=== PATIENT | male | born 1965 | race Caucasian/White ===

== ENCOUNTER 2017-01-21 19:19 | Emergency (ER) | payer OTHER ==
--- NOTE | 2017-01-21 20:23 | ER PHYSICIAN DOCUMENTATION ---
Physician Documentation [facility] Name:Juaquin Mak Age:51 yrs Sex:Male :1965 Arrival Date:01/21/2017 Time:19:19 Bed4 Private MD:Physician, No ED Jairo Joseph Disposition: 01/21/17 20:01 Discharged to [place]. Impression: Hypertension. - Condition is Good. - Medical Reconciliation form form. - Follow up: Private Physician; When: Tomorrow; Reason: Recheck today's complaints, Continuance of care. - Problem is new. - Symptoms have improved. - Notes: Drink plenty of water each day. Rest. Dr. Rodriguez at [facility] will determine if another medication needs to be started tomorrow in addition to your Lisinopril. HPI: 01/21 19:30 This 51 yrs old Male presents to ER via Private Vehicle with complaints of cd High Blood Pressure. 19:30 The patient has elevated blood pressure and discovered this at [facility] where he has been for the past 8 days for treatment of Alcoholism. He has been doing very well in the program. He has had HTN since his arrival there 8 days ago.. Onset: The symptom(s)/episode began/occurred 8 day(s) ago. Modifying factors: The symptoms are alleviated by prescription meds, clonidine, The patient was given Clonidine 0.1 mg PO just prior to coming to the [facility] at 1900 PM. His BP is already responding to that medication.. Associated signs and symptoms: Pertinent negatives: chest pain, dizziness, dyspnea, headache, lightheadedness, nausea, visual changes, vomiting, weakness. 19:30 Severity of symptoms: At its worst the blood pressure was severe, 187 mm Hg. The cd patient has not experienced similar symptoms in the past. Historical: - Allergies: No known drug Allergies; - Home Meds: 1. Lisinopril Oral - PMHx: Hypertension; - PSHx: HERNIA REPAIR; - Ebola Screening: : Patient negative for fever greater than or equal to 101.5 degrees Fahrenheit, and additional compatible Ebola Virus Disease symptoms. Patient denies exposure to infectious person. Patient denies travel to an Ebola-affected area in the 21 days before illness onset. No symptoms or risks identified at this time. . - Immunization history: Flu Vaccine < 1 year. - Social history: Smoking status: Patient states former smoker of tobacco. Patient/guardian denies using alcohol, street drugs, IV drugs, marijuana. ROS: 19:35 Constitutional: Negative for chills, fever, poor PO intake. cd 19:35 Eyes: Negative for blurry vision, visual disturbance, vision loss. 19:35 Cardiovascular: Negative for chest pain, edema, palpitations. 19:35 Respiratory: Negative for dyspnea on exertion, orthopnea, shortness of breath, wheezing. 19:35 Abdomen/GI: Negative for abdominal pain, nausea, vomiting. 19:35 Neuro: Negative for altered mental status, dizziness, headache, loss of consciousness, seizure activity, speech changes, visual changes. 19:35 All other systems are negative. Exam: 19:45 Head/Face: Normocephalic, atraumatic. cd Eyes: Pupils equal round and reactive to light, extra-ocular motions intact. Lids and lashes normal. Conjunctiva and sclera are non-icteric and not injected. Cornea within normal limits. Periorbital areas with no swelling, redness, or edema. ENT: Nares patent. No nasal discharge, no septal abnormalities noted. Tympanic membranes are normal and external auditory canals are clear. Oropharynx with no redness, swelling, or masses, exudates, or evidence of obstruction, uvula midline. Mucous membranes moist. 19:45 Neck: Trachea midline, no thyromegaly or masses palpated, and no cervical cd lymphadenopathy. Supple, full range of motion without nuchal rigidity, or vertebral point tenderness. No Meningismus. 19:45 Constitutional: The patient appears alert, awake, non-diaphoretic, non-toxic, well developed, well nourished. 19:45 Cardiovascular: Rate: normal, Rhythm: regular, Pulses: no pulse deficits are appreciated, Heart sounds: normal, normal S1and S2. 19:45 Respiratory: the patient does not display signs of respiratory distress, Respirations: normal, no acute changes, Breath sounds: are normal, clear throughout. 19:45 Abdomen/GI: Inspection: abdomen appears normal, Palpation: abdomen is soft and non-tender. 19:45 Back: CVA tenderness, is absent. 19:45 Musculoskeletal/extremity: Exam is negative for acute changes. 19:45 Neuro: Orientation: is normal, to person, place & time. Mentation: is normal, Memory: is normal, Cranial nerves: CN II- XII are normal as tested, Motor: is normal, Sensation: is normal, Gait: is steady. Vital Signs: 19:20 BP 187 / 100 (auto/); sc1 19:24 Pulse Ox 93% ; sc1 19:24 Pulse 69; Resp 16; sc1 19:53 BP 152 / 98 (auto/); mi1 19:54 Pulse Ox 93% ; sc1 Camilla Coma Score: 19:45 Eye Response: spontaneous(4). Verbal Response: oriented(5). Motor Response: obeys cd commands(6). Total: 15. MDM: 19:42 Patient medically screened. cd 19:55 Data reviewed: vital signs, nurses notes, old medical records, and as a result, I will cd discharge patient. Data interpreted: court monitor: rate is 69 beats/min, rhythm is normal sinus rhythm, regular, with no ectopy, Interpretation: normal rate, normal rhythm, Pulse oximetry: on room air is 93 %. Interpretation: normal. Counseling: I had a detailed discussion with the patient and/or guardian regarding: the historical points, exam findings, and any diagnostic results supporting the discharge/admit diagnosis. 19:55 Counseling: I had a detailed discussion with the patient and/or guardian regarding: the cd need for outpatient follow up, for a recheck, with the patient's primary care provider, to return to the emergency department if symptoms worsen or persist or if there are any questions or concerns that arise at home. Response to treatment: the patient's symptoms have markedly improved after treatment, the patient's condition has returned to base line, the patient is now symptom free, and as a result, I will discharge patient. Dispensed Medications: No medications were administered Signatures: Noemi Gracia, RN RN sc1 Jairo Santos MD MD cd
--- NOTE | 2017-01-21 20:23 | ER NURSING DOCUMENTATION ---
Nurse's Notes [facility] Name:Juaquin Mak Age:51 yrs Sex:Male :1965 Arrival Date:01/21/2017 Time:19:19 Bed4 Private MD:Carolee Estrada Diagnosis:Hypertension Presentation: 01/21 19:28 Presenting complaint: Patient states: sent from [place] with hypertension. Pt. states sc1 he has been in [place] for 8 days for ETOH and that his blood pressure has been elevated since arriving to [place]. Transition of care: [place]. Notified ED Physician of patient's arrival and CC Dr. Santos notified. 19:28 Acuity: PRINCESS 3 sc1 19:28 Method Of Arrival: Private Vehicle sd1 Triage Assessment: 19:41 General: Appears in no apparent distress, well developed, well nourished, well groomed, sc1 Behavior is cooperative, pleasant. Pain: Denies pain. Historical: - Allergies: No known drug Allergies; - Home Meds: 1. Lisinopril Oral - PMHx: Hypertension; - PSHx: HERNIA REPAIR; - Ebola Screening: : Patient negative for fever greater than or equal to 101.5 degrees Fahrenheit, and additional compatible Ebola Virus Disease symptoms. Patient denies exposure to infectious person. Patient denies travel to an Ebola-affected area in the 21 days before illness onset. No symptoms or risks identified at this time. . - Immunization history: Flu Vaccine < 1 year. - Social history: Smoking status: Patient states former smoker of tobacco. Patient/guardian denies using alcohol, street drugs, IV drugs, marijuana. Screenin:43 Infectious Disease Risk None. Abuse screen: Denies threats or abuse. Nutritional sc1 screening: No deficits noted. Vital Signs: 19:20 BP 187 / 100 (auto/); sc1 19:24 Pulse Ox 93% ; sc1 19:24 Pulse 69; Resp 16; sc1 19:53 BP 152 / 98 (auto/); sc1 19:54 Pulse Ox 93% ; sc1 Camilla Coma Score: 19:45 Eye Response: spontaneous(4). Verbal Response: oriented(5). Motor Response: obeys cd commands(6). Total: 15. ED Course: 19:20 Patient arrived in ED. em2 19:20 Physician, No is Private Physician. em2 19:28 Noemi Gracia, RN is Primary Nurse. sc1 19:34 Triage completed. sd1 19:41 Jairo Santos MD is Attending Physician. cd 19:42 Notified ED Physician of patient's arrival and chief complaint. Dr. Santos notified. Arm sc1 band placed on Bed in low position Call Light in Reach. Affected limb iced. Affected limb elevated. Administered Medications: No medications were administered Outcome: 20:01 Discharge ordered by . cd 20:22 Patient left the ED. sd1 Signatures: Noemi Gracia RN RN sd1 Jairo Santos MD MD cd Meinking-reg, Hanh-reg em2
== END 2017-01-21 20:23 ==
LOC: ER 19:19
DX: I10 Essential (primary) hypertension (principal); F10.21 Alcohol dependence, in remission; Z79.899 Other long term (current) drug therapy
CPT/HCPCS: 99281